=== PATIENT | male | born 1970 | race Caucasian/White ===

== ENCOUNTER 2022-03-04 11:03 | Inpatient (IN) | payer OTHER ==
[2022-03-04 12:37] VITALS: BMI 26.3
[2022-03-04] MEDS ORDERED: NALOXONE HCL (KLOXXADO) 8 MG SPRAY NS PRN (13:38)
[2022-03-04] MEDS ORDERED: ONDANSETRON *ODT* 4 MG TABLET SL PRN (13:38)
[2022-03-04] MEDS ORDERED: chlordiazePOXIDE HCL 25 MG CAPSULE PO PRN (13:38)
[2022-03-04] MEDS ORDERED: MAG HYDROX/AL HYDROX/SIMETH 30 ML UNIT-DOSE CUP PO PRN (13:38)
[2022-03-04] MEDS ORDERED: DICYCLOMINE HCL 10 MG CAPSULE PO PRN (13:38)
[2022-03-04] MEDS ORDERED: NICOTINE 10 MG CARTRIDGE (INHALER) IH PRN (13:38)
[2022-03-04] MEDS ORDERED: POLYETHYLENE GLYCOL (HEALTHYLAX) 3350 17 GM PACKET PO PRN (13:38)
[2022-03-04] MEDS ORDERED: LOPERAMIDE HCL 2 MG CAPSULE PO PRN (13:38)
[2022-03-04] MEDS ORDERED: MAGNESIUM HYDROX 2400MG/30ML ORAL SUSPENSION 30 ML CUP PO PRN (13:38)
[2022-03-04] MEDS ORDERED: BISMUTH SUBSALICYLATE 524 MG/30 ML PO PRN (13:38)
[2022-03-04] MEDS ORDERED: IBUPROFEN 400 MG TABLET (FP) PO PRN (13:38)
[2022-03-04] MEDS ORDERED: ACETAMINOPHEN 325 MG TABLET (FP) PO PRN ×2 (13:38)
[2022-03-04] MEDS ORDERED: BENZOCAINE/MENTHOL (CHLORASEPTIC ) LOZENGE MM PRN (13:38)
[2022-03-04] MEDS ORDERED: diazePAM 5 MG TABLET PO PRN (13:43)
[2022-03-04] MEDS ORDERED: BUPRENORPHINE HCL 150 MCG, BUPRENORPHINE HCL 75 MCG BC PRN (13:43)
[2022-03-04] MEDS ORDERED: ALBUTEROL SO4 HFA INHALER IH PRN (13:45)
[2022-03-04] MEDS ORDERED: BUPRENORPHINE HCL 150 MCG, BUPRENORPHINE HCL 75 MCG BC ONE (14:00)
[2022-03-04] MEDS ORDERED: cloNIDine HCL 0.1 MG TABLET PO ONE (14:00)
[2022-03-04] MEDS ORDERED: BUPRENORPHINE HCL 150 MCG FILM BC ONE (14:57)
[2022-03-04] MEDS ORDERED: BUPRENORPHINE HCL 75 MCG FILM BC ONE (14:58)
[2022-03-04] MEDS ORDERED: cloNIDine HCL 0.1 MG TABLET ONE (14:58)
[2022-03-04] MEDS: CHOLECALCIFEROL (VIT D3) 400 UNIT (10 MCG) TABLET PO SCH (16:14)
[2022-03-04] MEDS: chlordiazePOXIDE HCL 25 MG CAPSULE PO SCH ×2 (17:25→22:14)
[2022-03-04] MEDS: hydrOXYzine PAMOATE 25 MG CAPSULE (FP) PO PRN (17:28)
[2022-03-04] MEDS: ARTIFICIAL TEARS (POLYVINYL ALCOHOL) OPTH DROPS OU PRN (17:30)
[2022-03-04] MEDS: THIAMINE HCL 100 MG TABLET (FP) PO SCH (22:14)
[2022-03-04] MEDS: MELATONIN 5 MG TABLETS PO SCH (22:14)
[2022-03-05] MEDS ORDERED: BUPRENORPHINE HCL 150 MCG, BUPRENORPHINE HCL 75 MCG BC PRN
[2022-03-05] MEDS: chlordiazePOXIDE HCL 25 MG CAPSULE PO SCH ×2 (04:15→10:24)
[2022-03-05] MEDS: METHOCARBAMOL 500 MG TABLET PO PRN ×3 (04:15→18:55)
[2022-03-05] MEDS: hydrOXYzine PAMOATE 25 MG CAPSULE (FP) PO PRN (04:15)
[2022-03-05] MEDS: BUPRENORPHINE HCL 150 MCG, BUPRENORPHINE HCL 75 MCG BC SCH ×2 (06:15→17:45)
[2022-03-05 10:14] LABS: HEMATOCRIT 36.6 % (35.4-49); HEMOGLOBIN 11.8 GM/dL (11.7-16.9); MCH 29.6 pg (25.7-33.7); MCHC 32.3 g/dl (32.0-35.9); MEAN CELL VOLUME 91.6 fl (80-96); MEAN PLT VOLUME 9.3 fl (7.5-11.1); PLATELET COUNT 286 10^3/uL (134-434); RDW 13.8 % (11.9-15.9); WHITE BLOOD COUNT 9.1 K/mm3 (4.0-10.0)
[2022-03-05] MEDS: PRENATAL VITAMINS W/ FOLIC ACID TABLET (FP) PO SCH (10:23)
[2022-03-05 10:43] LABS: ALBUMIN 3.5 g/dl (3.4-5.0); BLOOD UREA NITROGEN 18.5 mg/dL (7-18); CALCIUM 9.3 mg/dL (8.5-10.1)
[2022-03-05 10:48] LABS: BILIRUBIN,TOTAL 0.2 mg/dL (0.2-1); TOT PROT 6.8 g/dl (6.4-8.2)
[2022-03-05] MEDS: CHOLECALCIFEROL (VIT D3) 400 UNIT (10 MCG) TABLET PO SCH (12:17)
[2022-03-05] MEDS: diazePAM 5 MG TABLET PO PRN (12:52)
[2022-03-05] MEDS: LORATADINE 10 MG TABLET PO SCH (13:58)
[2022-03-05] MEDS: diazePAM 5 MG TABLET PO SCH ×2 (16:24→22:45)
[2022-03-05] MEDS: cloNIDine HCL 0.1 MG TABLET PO PRN (18:56)
[2022-03-05] MEDS: IBUPROFEN 600 MG TABLET (FP) PO PRN (22:45)
[2022-03-05] MEDS: THIAMINE HCL 100 MG TABLET (FP) PO SCH (22:45)
[2022-03-05] MEDS: MELATONIN 5 MG TABLETS PO SCH (22:47)
[2022-03-06] MEDS ORDERED: chlordiazePOXIDE HCL 25 MG CAPSULE PO SCH (05:00)
[2022-03-06] MEDS: diazePAM 5 MG TABLET PO SCH ×4 (05:35→22:42)
[2022-03-06] MEDS: BUPRENORPHINE HCL 450 MCG FILM BC SCH ×2 (05:35→17:54)
[2022-03-06] MEDS: CHOLECALCIFEROL (VIT D3) 400 UNIT (10 MCG) TABLET PO SCH (10:22)
[2022-03-06] MEDS: LORATADINE 10 MG TABLET PO SCH (10:23)
[2022-03-06] MEDS: PRENATAL VITAMINS W/ FOLIC ACID TABLET (FP) PO SCH (10:23)
[2022-03-06] MEDS: IBUPROFEN 600 MG TABLET (FP) PO PRN (10:24)
[2022-03-06] MEDS: cloNIDine HCL 0.1 MG TABLET PO PRN ×2 (10:24→22:41)
[2022-03-06] MEDS: METHOCARBAMOL 500 MG TABLET PO PRN (10:24)
[2022-03-06] MEDS: diazePAM 5 MG TABLET PO PRN (13:15)
[2022-03-06] MEDS: THIAMINE HCL 100 MG TABLET (FP) PO SCH (22:41)
[2022-03-06] MEDS: MELATONIN 5 MG TABLETS PO SCH (22:41)
[2022-03-07] MEDS ORDERED: chlordiazePOXIDE HCL 10 MG CAPSULE PO PRN
[2022-03-07] MEDS ORDERED: chlordiazePOXIDE HCL 10 MG CAPSULE PO SCH (05:00)
[2022-03-07] MEDS: BUPRENORPHINE/NALOXONE 4 MG/1 MG FILM PACKET SL SCH ×2 (05:29→17:41)
[2022-03-07] MEDS: diazePAM 5 MG TABLET PO SCH ×3 (05:29→22:15)
[2022-03-07] MEDS: cloNIDine HCL 0.1 MG TABLET PO PRN (07:40)
[2022-03-07] MEDS: LORATADINE 10 MG TABLET PO SCH (10:15)
[2022-03-07] MEDS: CHOLECALCIFEROL (VIT D3) 400 UNIT (10 MCG) TABLET PO SCH (10:15)
[2022-03-07] MEDS: PRENATAL VITAMINS W/ FOLIC ACID TABLET (FP) PO SCH (10:16)
[2022-03-07] MEDS: diazePAM 5 MG TABLET PO PRN ×2 (10:16→19:18)
[2022-03-07] MEDS: MELATONIN 5 MG TABLETS PO SCH (22:15)
[2022-03-07] MEDS: THIAMINE HCL 100 MG TABLET (FP) PO SCH (22:15)
[2022-03-08] MEDS: diazePAM 5 MG TABLET PO PRN ×2 (00:27→10:19)
[2022-03-08] MEDS: IBUPROFEN 600 MG TABLET (FP) PO PRN (00:28)
[2022-03-08] MEDS ORDERED: chlordiazePOXIDE HCL 10 MG CAPSULE PO SCH (05:00)
[2022-03-08] MEDS: diazePAM 5 MG TABLET PO SCH ×2 (05:07→17:39)
[2022-03-08] MEDS ORDERED: BUPRENORPHINE/NALOXONE 8 MG/2 MG FILM PACKET SL ONE (06:00)
[2022-03-08] MEDS: LORATADINE 10 MG TABLET PO SCH (10:18)
[2022-03-08] MEDS: METHOCARBAMOL 500 MG TABLET PO PRN ×2 (10:18→17:40)
[2022-03-08] MEDS: CHOLECALCIFEROL (VIT D3) 400 UNIT (10 MCG) TABLET PO SCH (10:18)
[2022-03-08] MEDS: ARTIFICIAL TEARS (POLYVINYL ALCOHOL) OPTH DROPS OU PRN ×2 (10:20→22:18)
[2022-03-08] MEDS: PRENATAL VITAMINS W/ FOLIC ACID TABLET (FP) PO SCH (10:20)
[2022-03-08] MEDS: THIAMINE HCL 100 MG TABLET (FP) PO SCH (22:18)
[2022-03-08] MEDS: MELATONIN 5 MG TABLETS PO SCH (22:19)
[2022-03-09] MEDS ORDERED: chlordiazePOXIDE HCL 10 MG CAPSULE PO ONE (05:00)
[2022-03-09] MEDS: METHOCARBAMOL 500 MG TABLET PO PRN (05:51)
[2022-03-09] MEDS ORDERED: BUPRENORPHINE/NALOXONE 8 MG/2 MG FILM PACKET SL ONE (06:00)
[2022-03-09] MEDS ORDERED: diazePAM 5 MG TABLET PO ONE (06:00)
[2022-03-09 09:14] VITALS: BP 148/69; PULSE 80; RESP 17; TEMP 97.3
== END 2022-03-09 09:33 | disposition home or self-care (01) | DRG 773 ==
LOC: YASAS 11:03 → Y6N 14:39
PROVIDERS: ADMIT Allergy & Immunology; ATTEND Surgery
PROC: HZ2ZZZZ Detoxification Services for Substance Abuse Treatment (ICD-10-PCS; principal; 2022-03-04)
DX: F11.23 Opioid dependence with withdrawal (principal); F10.230 Alcohol dependence with withdrawal, uncomplicated; J45.909 Unspecified asthma, uncomplicated; M17.0 Bilateral primary osteoarthritis of knee; Z87.891 Personal history of nicotine dependence
CPT/HCPCS: 36415; 80053; 85027; 86780; 93005; 93010; C9803-CS; U0003; U0005